=== PATIENT | female | born 1965 | race Caucasian/White ===

== ENCOUNTER 2021-03-26 08:35 | Outpatient (REF) | payer MEDICAID, SELFPAY ==
--- NOTE | ~2021-03-26 | XR_ITS ---
EXAMINATION: XR HAND, LEFT CLINICAL INFORMATION: Left hand pain. COMPARISON: None TECHNIQUE: PA, lateral, and oblique views of the left hand. FINDINGS: Moderate to severe interphalangeal degenerative joint changes are seen most pronounced in the proximal interphalangeal joints of the third and fourth digits with hypertrophic changes. Mild degenerative changes are seen in the fifth metacarpophalangeal, first carpometacarpal and triscaphe joints. There is no acute fracture or dislocation. The carpal bones are normally aligned. The distal radius and ulna are intact. The soft tissues are unremarkable. XR/XR hand LT min 3V IMPRESSION: Degenerative joint changes as detailed above most consistent with osteoarthritis. No acute fracture.
--- NOTE | ~2021-03-26 | XR_ITS ---
EXAMINATION: XR HAND, RIGHT CLINICAL INFORMATION: Right hand pain. COMPARISON: Right hand pain. TECHNIQUE: PA, lateral, and oblique views of the right hand. FINDINGS: Moderate to severe interphalangeal degenerative joint changes are seen most pronounced in the proximal interphalangeal joints of the third and fourth digits with hypertrophic changes. There is no acute fracture or dislocation. The carpal bones are normally aligned. The distal radius and ulna are intact. The soft tissues are unremarkable. XR/XR hand RT min 3V IMPRESSION: Degenerative joint changes as detailed above most consistent with osteoarthritis without acute abnormality.
== END 2021-03-26 08:36 | disposition home or self-care (01) ==
LOC: HO.HOSX 08:35
PROVIDERS: Visit Provider Orthopaedic Surgery
DX: M19.041 Primary osteoarthritis, right hand (principal); M19.042 Primary osteoarthritis, left hand
CPT/HCPCS: 73130; 99202